=== PATIENT | male | born 1965 ===

== ENCOUNTER 2019-05-07 11:25 | Day surgery (SDC) | payer OTHER ==
--- NOTE | 2019-05-07 10:15 | HP ---
DATE OF SURGERY: 05/07/2019 HISTORY OF PRESENT ILLNESS: The patient is a 53 year-old with nausea, vomiting worse with greasy food. Heartburn medicine improved a little bit of the nausea and vomiting. Ultrasound showed symptomatic cholelithiasis, chronic cholecystitis. I feel she will benefit from cholecystectomy. PAST MEDICAL HISTORY: Hypertension, reflux. PAST SURGICAL HISTORY: Knee surgery in the past. MEDICATIONS: Lisinopril, fish oil, baby aspirin, omeprazole. ALLERGIES: NKDA. FAMILY HISTORY: Negative in regards to this problem. SOCIAL HISTORY: No alcohol abuse. REVIEW OF SYSTEMS: Fourteen systems reviewed per admission assessment. No chest pain or palpitations other systems negative or noncontributory as above and per preadmission questionnaire. PHYSICAL EXAMINATION: GENERAL: No acute distress. HEENT: Sclerae nonicteric. NECK: No JVD. CHEST: Equal excursion, nonlabored breathing. CVS: Regular rate and rhythm. ABDOMEN: Soft. No peritoneal signs. EXTREMITIES: No significant edema. NEURO: Alert, oriented, moving extremities symmetrically. No gross motor deficits noted. IMPRESSION: Symptomatic cholelithiasis, chronic cholecystitis. I feel the patient will benefit from cholecystectomy. Risks and benefits explained in detail including but not limited to bleeding or infection, risk of trocar injury or hernia, small risk of bowel, bladder or blood vessel injury, small risk of bile leak, bile duct injury, retained stone or sludge possibly requiring further procedure either open or ERCP, general risk of anesthesia, deep venous thrombosis, pulmonary embolism, pneumonia, perioperative risk of aches, pains, bloating, constipation and/or loose stools possibly even chronic in nature. He understands and agrees to the planned procedure, will proceed with laparoscopic cholecystectomy with possible open as an outpatient.
[~2019-05-07 11:25] MED LIST: Lactated Ringers 0 ML IV ONE; Lactated Ringers 1,000 ML IV ONE; Sensorcaine 0.25% 10 ML ONE
--- NOTE | 2019-05-07 12:17 | XRAY ---
Indication: Fever and cough. Comparison: None Portable chest demonstrates normal heart, lungs, and bony thorax with incidental focal eventration of the left hemidiaphragm.
[2019-05-07] MEDS ORDERED: Zemuron 100 MG/10 ML ONE (12:18)
[2019-05-07] MEDS ORDERED: SUBLIMAZE 250 MCG/5 ML ONE (12:18)
[2019-05-07] MEDS ORDERED: Versed 2 MG/2 ML Injection ONE (12:18)
[2019-05-07] MEDS ORDERED: DIPRIVAN 200 MG/20 ML IV ONE (12:18)
[2019-05-07] MEDS: Lactated Ringers 1,000 ML IV SCH (12:25)
[2019-05-07] MEDS: MEFOXIN 2 GM PREMIX** 2 GM/50 ML ML IV SCH (12:26)
[2019-05-07] MEDS ORDERED: BRIDION 200MG/2ML IV ONE (14:08)
[2019-05-07] MEDS ORDERED: SUBLIMAZE 100 MCG/2 ML ONE (14:15)
[2019-05-07] MEDS ORDERED: Zofran 4 MG/2 ML VIAL ONE (14:43)
[2019-05-07 15:42] VITALS: BP 128/87; PULSE 83; O2SAT 94
--- NOTE | 2019-05-08 08:55 | OP ---
SURGERY DATE/TIME: 05/07/2019 1345 PREOPERATIVE DIAGNOSIS: Symptomatic cholelithiasis, chronic cholecystitis. POSTOPERATIVE DIAGNOSIS: Symptomatic cholelithiasis, chronic cholecystitis. PROCEDURE: Laparoscopic cholecystectomy. SURGEON: Dr. Rogelio Pearce. ANESTHESIA: General. ESTIMATED BLOOD LOSS: Minimal. INDICATIONS: As noted above. Risks and benefits explained in detail but not limited to and consent obtained. DESCRIPTION OF PROCEDURE AND FINDINGS: The patient is taken to the operating room. General anesthesia induced. Abdomen prepped and draped in the usual sterile fashion. After official time out and no disagreement with planned procedure, a transverse incision made at the supraumbilical area. Fascia grasped and pulled upward. Veress needle inserted and tested with saline. Pneumoperitoneum accomplished insufflating opening pressure of 0-15. A 5 mm bladeless port and camera inserted without difficulty followed by two - 5 mm right upper quadrant ports and 11 mm epigastric port. The gallbladder grasped retracted over the edge of the liver and laterally away from Calot's triangle. He had some fibrofatty adhesions. Dissecting posterior, lateral to anterior fashion slowly and carefully. The main cystic artery, cystic duct and infundibular junction slowly and carefully well skeletonized until the critical view obtained both anteriorly and posteriorly. Once this is accomplished the cystic duct and cystic artery clipped x3 and divided in the usual fashion. One of the graspers tore a small pinhole in the gallbladder. There was no visible stone spillage, some bile spillage suction irrigated as clear as possible. Staying directly on the gallbladder wall, the gallbladder is slowly and carefully dissected free from its dense attachment to liver bed. Just prior to releasing from final attachments to the anterior edge of the liver, the liver bed re-inspected. Clips noted in place cystic duct and cystic artery stumps. There were no signs of any active bleeding or bile leakage. It was felt there was no benefit in drain placement. Gallbladder released from final attachments to anterior edge of the liver, placed in Pleatman sac and pulled up and out the 10/11 port site in the epigastrium. Copious amount of irrigation accomplished lateral to the liver and subhepatic space irrigating clear. There is no visible stone spillage noted. Irrigation irrigated clear. It was felt there was no benefit from drain placement. Cystic duct and cystic artery clips were noted in place. No signs of any active bleeding or bile leakage. There was one small, little vessel on the anterior edge of the liver that was cauterized with brief bursts of cautery. Good hemostasis noted. Irrigation is clear. Fascial defect 1011 site closed with puncture closure device with #1 Vicryl. Pneumoperitoneum decompressed. The wound was irrigated out. Skin incision closed with 4-0 Vicryl. Steri-Strips and sterile dressing applied. 0.25% Marcaine local injected along the skin incision fascial defect. The patient tolerated the procedure well. There were no immediate complications. Findings discussed with the family out in the waiting area.
== END 2019-05-07 15:52 | disposition home or self-care (01) ==
LOC: SDC 11:25
PROVIDERS: ATTEND Surgery
DX: K80.10 Calculus of gallbladder with chronic cholecystitis without obstruction (principal); I10 Essential (primary) hypertension; K21.9 Gastro-esophageal reflux disease without esophagitis; Z79.899 Other long term (current) drug therapy
CPT/HCPCS: 71045; J0694; J2250; J2405; J2704; J3010